=== PATIENT | female | born 1980 | race Caucasian/White ===

== ENCOUNTER → 2023-10-24 12:53 | Outpatient (REF) | payer OTHER, SELFPAY ==
--- NOTE | 2023-10-24 13:00 | CA_ITS ---
Transthoracic Echocardiogram Patient (Last, First, Middle): Gloria Denton, Gender: Female Date of : 1980 Age: 43 Procedure Date: 10/24/2023 Procedure Type: Transthoracic Echocardiogram Location: OP Height: 170.18 cm Weight: 67.13 kg BSA: 1.78 m2 Heart Rate: bpm BP: 100 / 60 mmHg Sleep Lab Technician: ELLA Referring MD: Tobias Baker MD Physical Education Professor: Richie Ann MD Symptoms: Palpitations Study Quality: Adequate ECG Rhythm: Sinus Conclusions: - Normal study Findings Left Ventricle Normal left ventricular size, thickness, and systolic function. The visually estimated ejection fraction is between 60-65%. Diastolic function is normal for age. Peak GLS is -25.4%, within normal limits Right Ventricle Normal right ventricular cavity size and systolic function. Atria Both atria are normal in size. There is no evidence of interatrial shunt. Aortic Valve Normal aortic valve structure and function. There is no aortic valve stenosis. There is no aortic valve regurgitation. Mitral Valve Normal mitral valve structure and function. There is no mitral valve regurgitation. There is no mitral valve stenosis. Pulmonic Valve The pulmonic valve is normal. There is trace pulmonic valve regurgitation. Tricuspid Valve Normal tricuspid valve structure. There is trace tricuspid valve regurgitation. The right ventricular systolic pressure is normal. The right ventricular systolic pressure is 26 mmHg. Normal right atrial pressure. There is no evidence of pulmonary hypertension. Great Vessels All visible segments of the aorta are normal in size. The visualized portions of the pulmonary artery and branches are normal. Venous The inferior vena cava is normal in size and collapses greater than 50% with inspiration. Pericardium/Pleural There is no evidence of pericardial effusion. Prior Study Comparison No prior study available for comparison. Measurements 2D Linear Measurements IVSd: 0.88 0.6-0.9/0.6-1.0 cm LVIDd: 5.21 3.9-5.3/4.2-5.9 cm LVIDd Index: 2.93 2.4-3.2/2.2-3.1 cm/m2 LVIDs: 3.53 2.0-3.6 cm LVPWd: 0.64 0.7-1.1 cm LA Diam: 3.40 2.7-3.8/3.0-4.0 cm LAIDs Index: 1.91 1.5-2.3 cm/m2 LV Mass: 169.37 67-162/88-224 g LV Mass Index: 95.15 43-95/49-115 g/m2 LVOT Diam: 2.20 3.0+(-)1.3 cm 2D Systolic Function EF 4C: 58.00 >55% EF 2C: 66.90 >55% EF BiP: 61.70 >55% Mitral Valve MV Pk E: 0.76 MV PK A: 0.31 MV Decel Time: 194.00 E/A: 2.40 E'Lateral: 16.50 E'Medial: 11.20 E/E' Med: 6.80 E/E' Lat: 4.60 PHT: 57.00 MVA PHT: 3.86 Decel [place]: 3.94 Aortic Valve AoV Pk Nura: 1.04 AoV Mn Nura: 0.76 AoV VTI: 0.31 AoV Pk Grad: 4.00 Aov Mn Grad: 2.00 DESMOND Cont.VTI: 2.35 LVOT LVOT Pk Nura: 0.80 LVOT Mn Nura: 0.55 LVOT VTI: 0.19 LVOT Pk Grad: 3.00 LVOT Mn Grad: 1.00 LVOT Diam: 2.20 LVOT Area: 3.80 Diastolic Function MV Pk E: 0.76 MV Pk A: 0.31 E/A: 2.40 E'Medial: 11.20 E/E' Med: 6.80 E' Laterial: 16.50 E/E' Lat: 4.60 Right Ventricle TAPSE (mm): 27.30 TVS' Nura: 13.30 Tricuspid Valve TR Pk Nura: 2.11 TR Pk Grad: 18.00 RA Press: 8.00 RVSP: 26.00 Great Vessels Aorta Sinus of Valsalva: 3.16 2.0-3.[address] [place]: 2.20 1.7-3.4 cm Ao Asc: 2.90 2.1-3.4 cm Ao Arch: 2.60 Updated in Other Vendor System with Status of Final Richie Ann MD electronically signed on 10/25/2023 12:45:19 PM with status of Final
== END ==
LOC: HO.CARD 12:53
PROVIDERS: Visit Provider Internal Medicine Cardiovascular Disease
DX: R00.2 Palpitations (principal)
CPT/HCPCS: 93306; 93356

== ENCOUNTER → 2023-10-24 13:00 | Outpatient (BNV) | payer OTHER, SELFPAY | PROVIDERS: Visit Provider Internal Medicine Cardiovascular Disease | DX: R00.2 Palpitations (principal) | CPT/HCPCS: 93306 ==